=== PATIENT | male | born 1950 | race Caucasian/White ===

== ENCOUNTER 2022-11-05 12:46 | Inpatient (IN) | payer MEDICARE, OTHER, SELFPAY ==
[2022-11-05] VITALS (8 sets, daily range): BP systolic 108–123; BP diastolic 62–76; PULSE 74–91; RESP 18–20; TEMP 36.8–37.6; O2SAT 96–99; BMI 30.4
--- NOTE | ~2022-11-05 | CT_ITS ---
EXAMINATION: CT brain wo con DATE: 11/07/2022 18:04 INDICATION: Sepsis. Altered mental status. TECHNIQUE: Computed tomography (CT) of the head was performed without intravenous contrast. Sagittal and coronal reconstructions were performed. The mA was adjusted according to patient size. Iterative reconstruction technique was employed. The dose-length product was 983.67 mGy-cm. COMPARISON: None FINDINGS: Very small focus of encephalomalacia along the tip of a gyrus in the right frontal lobe consistent wi th sequela of old infarct. No acute intracranial hemorrhage, acute infarction or abnormal extra axial fluid collection. Ventricles are normal and symmetric. No mass/mass effect. The orbits, paranasal si nuses and mastoid air cells are normal. IMPRESSION: 1. 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 No acute intracranial process. Reviewed, dictated and finalized at location A.
--- NOTE | ~2022-11-05 | XR_ITS ---
XR chest port-a-cath/central 11/07/2022 15:11 Indication: Central venous catheter placement Procedure: AP portable chest Comparison: Comparison to multiple prior studies sequentially, with oldest reviewed study dated 01/04. Findings: Cardiomegaly. Mild interstitial edema. No pleural effusion or pneumothorax. No acute osseou s abnormality. Right IJ central line tip in the caudal aspect of the SVC. Impression: 1: Cardiomegaly with mild interstitial edema. Reviewed, dictated and finalized at location B. Impression: 1: Cardiomegaly with mild interstitial edema.
--- NOTE | ~2022-11-05 | XR_ITS ---
EXAMINATION: XR chest 1V portable Exam Date/Time: 11/07/2022 13:45 CDT HISTORY: HoTN Comparison: 01/06/2018. RESULT: Lines, tubes, and devices: None. Lungs and pleura: Slightly low volumes with crowding and bibasilar scar/atelectasis. Otherwise clear . Cardiomediastinal silhouette: Stable. Other: No acute osseous or upper abdominal finding. IMPRESSION: No acute cardiopulmonary process. Reviewed, dictated and finalized at location K.
--- NOTE | ~2022-11-05 | XR_ITS ---
EXAM: XR hand LT 2V DATE: 11/07/2022 13:58 HISTORY: left 2nd digit pain HOTN . COMPARISON: None available. FINDINGS/IMPRESSION: Limited evaluation of the second digit due to overlapping fingers. Vascular calc ifications. Possible soft tissue swelling of the palm. Consider nonportable dedicated [facility]. Reviewed, dictated and finalized at location K.
--- NOTE | ~2022-11-05 | CT_ITS ---
EXAMINATION: CT chest abdomen pelvis wo con DATE: 11/07/2022 18:07 INDICATION: Sepsis. Altered mental status. TECHNIQUE: Computed tomography (CT) of the chest, abdomen, and pelvis was performed without intraveno us contrast. Automated exposure control and iterative reconstruction technique were employed. The dos e-length product was 1774.82 mGy-cm. COMPARISON: None FINDINGS: CHEST CT: Small dependent layering left pleural effusion with adjacent compressive atelectasis in the dependent left lower lobe. Few small calcified pulmonary nodules in the bilateral lower lobes consistent with old granulomatous disease. No pneumonia, pulmonary edema or right-sided pleural effusion. Mild cardio megaly with extensive atherosclerotic coronary artery calcifications. There are also dense aortic terry ve calcifications which could predispose towards aortic stenosis. Ectatic ascending thoracic aorta me asuring up to 4.4 cm in maximal diameter. Small pericardial effusion. No pathologically enlarged thor acic lymphadenopathy. Right internal jugular central venous catheter with distal tip at the caudal-mo st superior vena cava. Moderate thoracic spondylosis with bridging osteophytes at multiple levels con sistent with diffuse idiopathic skeletal hyperostosis (DISH). ABDOMEN/PELVIS CT: The gallbladder is either completely decompressed or surgically absent. Splenomegaly measuring 14.6 c m in maximal length. Liver, pancreas, bilateral adrenal glands and right kidney are normal aside from scattered atherosclerotic calcifications. 2 cm left renal cyst. Laguerre catheter within the decompress ed bladder. No bowel obstruction. Normal appendix. Minimal nonspecific ascites scattered throughout t he abdomen and pelvis. No abscess or free intraperitoneal gas. There is also extensive body wall nena a. No pathologically enlarged abdominal or pelvic lymphadenopathy. Severe spondylosis at L5-S1 with m ild more cephalad lumbar spondylosis. There is heterotopic ossification at the adductor muscle origin along the right pubic body and at the anterosuperior bilateral anterior acetabular origins of the bi lateral rectus femoris tendons. IMPRESSION: 1. Small left pleural effusion with dependent compressive atelectasis in the left lower lobe. 2. Cardiomegaly and small pericardial effusion. 2. Aortic valve calcification which could predispose towards aortic stenosis with potentially seconda ry 4.4 cm ascending thoracic aortic aneurysm. 4. Nonspecific very small amount of ascites in the abdomen and pelvis and extensive body wall edema w hich along with the pericardial effusion and small left pericardial effusion could be related to anas arca. Reviewed, dictated and finalized at location A. IMPRESSION: 1. Small left pleural effusion with dependent compressive atelectasis in the le ft lower lobe. 2. Cardiomegaly and small pericardial effusion. 2. Aortic valve calcification which could predispose towards aortic stenosis wi th potentially secondary 4.4 cm ascending thoracic aortic aneurysm. 4. Nonspecific very small amount of ascites in the abdomen and pelvis and exten sive body wall edema which along with the pericardial effusion and small left p ericardial effusion could be related to anasarca.
--- NOTE | ~2022-11-05 | XR_ITS ---
EXAMINATION: XR abdomen NG/feed tube insert DATE: 11/08/2022 11:52 INDICATION: Nasogastric tube placement TECHNIQUE: A supine view of the abdomen and lower chest was obtained for evaluation of feeding tube placement. COMPARISON: CT dated 11/07/2022 FINDINGS: Nasogastric tube tip at the gastric antrum with proximal side-port in the distal body of the stomach. Small amount of gas seen in the stomach, proximal duodenum and at the hepatic flexure of the colon. No dilated loops of gas-filled bowel to suggest obstruction. Lung bases are clear. Enlarged cardiac s ilhouette. IMPRESSION: 1. Gastric tube in stomach. Could consider withdrawal by 6-[address] the distal tip in the distal gastric body. Reviewed, dictated and finalized at location A. IMPRESSION: 1. Gastric tube in stomach. Could consider withdrawal by 6-[address] the di stal tip in the distal gastric body.
--- NOTE | ~2022-11-05 | US_ITS ---
EXAMINATION: US abdomen complete DATE: 11/07/2022 16:53 INDICATION: Elevated Bilirubin; LUDIN TECHNIQUE: Multiple grayscale and Doppler ultrasound images of the abdomen were obtained. COMPARISON: None available. FINDINGS: The visualized portions of the pancreas are normal. The liver is normal with normal echogen icity and echotexture. No surface nodularity. Normal hepatopetal flow in the main portal vein. Gallbl adder not visualized, may be contracted and obscured by bowel gas. The common bile duct measures 6 mm . The visualized portions of the inferior vena cava are normal. The aorta was mostly obscured by kinsey l gas, normal caliber distal abdominal aorta. The right kidney measures 12.3 x 5.1 x 6.5 cm. The left kidney measures 12.2 x 6.0 x 6.2 cm. The kidn eys demonstrate normal parenchymal echogenicity. 2.4 cm simple left renal cyst. 3 mm inferior pole re nal stone. There is no hydronephrosis. The spleen is normal in appearance and measures 14.5 cm. The b ladder is decompressed by a Laguerre catheter, therefore not well evaluated. IMPRESSION: Gallbladder not visualized, likely due to contraction and obscuration by bowel gas. Abdominal aorta m ostly obscured by bowel gas. Left nephrolithiasis. Urinary bladder decompressed by a Laguerre catheter. Otherwise normal abdominal ultrasound findings. Reviewed, dictated and finalized at location K. IMPRESSION: Gallbladder not visualized, likely due to contraction and obscuration by bowel gas. Abdominal aorta mostly obscured by bowel gas. Left nephrolithiasis. Urinar y bladder decompressed by a Laguerre catheter. Otherwise normal abdominal ultrasou nd findings.
--- NOTE | ~2022-11-05 | XR_ITS ---
EXAM: XR ankle RT 2V DATE: 11/07/2022 13:58 HISTORY: pain with ROM . COMPARISON: None available. FINDINGS: Normal mineralization. No fracture or dislocation. No lytic or blastic lesion. Achilles an d plantar enthesopathy. Degenerative changes in the tibiotalar joint and midfoot Ossification in the Achilles tendon. No erosion or periosteal change. Extensive vascular calcification. IMPRESSION: No acute osseous finding in the right ankle. Reviewed, dictated and finalized at location K.
--- NOTE | 2022-11-05 11:50 | ADMGEN ---
This patient, Cedrick Estevez, was admitted to IMU Room 209-01. Patient/family oriented to hospital policies and general routines including ID bracelet, bed and alarms, visiting hours, pain management, procedures, bathroom and other care routines, personal items, smoking policy, room service/diet, and visiting hours. Information on how to activate the Rapid Response Team has been discussed. Patient/Family are encouraged to report perceived risks to care and to ask questions if they do not understand what they are told or what they should do.
[2022-11-05 13:31] LABS: Alanine Aminotransferase 26 U/L (6-50); Albumin Level 3.4 g/dL (3.5-5.1); Alkaline Phosphatase 84 U/L (38-126); Anion Gap 10 mmol/L (8-16); Aspartate Amino Transferase 39 U/L (17-59); Bilirubin,Total 1.2 mg/dL (0.2-1.3); Blood Urea Nitrogen 57 mg/dL (9-20); Calcium 7.8 mg/dL (8.4-10.2); Carbon Dioxide 18 mmol/L (22-30); Chloride 96 mmol/L (98-107); Creatine Kinase 268 U/L (55-170); Estimated Glomerular Filt Rate 30; Glucose 158 mg/dL (65-110); Potassium 3.9 mmol/L (3.4-5.0); Sodium 124 mmol/L (137-145)
--- NOTE | 2022-11-05 13:46 | PM.IMHP ---
H&P: HPI History of Present Illness Date/Time: 11/05/22 13:00 Chief Complaint: Elevated troponin, acute kidney injury. Narrative: This is a pleasant 72-year-old male with history of coronary artery disease, aortic stenosis, heart failure with reduced ejection fraction, chronic kidney disease, hypertension, dyslipidemia, kidney stones, gastroesophageal reflux disease, and remote history of peptic ulcer who is being directly admitted to the IMU from the emergency department at [facility] in [place] for further evaluation after he was reportedly found to have an elevated troponin and an acute kidney injury. Over the weekend he was not feeling well with nausea, vomiting, and diarrhea though those seem to have improved he remains quite weak. Yesterday he slid down the bed while trying to exit the bed and he landed on his buttocks and was unable to get up without help. Today he fell back into the wall while in the bathroom due to weakness. He presented to the emergency department at the outside facility where he was found to have a sodium of 125, BUN 63, creatinine 2.84. I was told that his baseline creatinine is somewhere around 1.60 and 1.70. High sensitivity troponin was obtained and was elevated though he has not had any episodes of chest pain. He received 2 L of normal saline and he was transferred to [facility] for further evaluation and cardiology consultation. At the time my evaluation he reports that he is feeling somewhat better. He seems to belch frequently during the interview and it is noted that he has a history of GERD and peptic ulcers. He has not really had any more GERD symptoms than usual. His stools are always dark as he is on iron. He does not think his GERD is playing a factor in his symptoms today. He does look dry on exam and he does endorse that he still been taking his furosemide. He tries to stay hydrated drinks 80 oz of water a day though he has not been able to do that the last several days. He denies chest discomfort, shortness of breath, syncope, near syncope, fever, chills, and sweats. Of note he currently has resolving shingles on the left flank. Review of Systems Review of Systems: Twelve systems were reviewed and are negative except for as per HPI. [facility] Past Medical History Medical History Coronary artery disease Dyslipidemia Gastroesophageal reflux disease Heart failure with reduced ejection fraction Echo 12/2017: Moderate global systolic dysfunction, pseudonormal diastolic dysfunction grade 2, EF estimated at 35-40% with wall motion abnormalities. Hypertension Ischemic cardiomyopathy Kidney stones Non-ST elevation myocardial infarction (NSTEMI) (12/2017) Peptic ulcer Type 2 diabetes mellitus Surgical History Surgical History History of cardiac catheterization (12/2017) High-grade stenosis mid and distal circumflex, total occlusion of OM1 branch and LAD with chronic collaterals, high-grade stenosis ostial PDA, high-grade stenosis of circumflex treated with drug-eluting stent. History of coronary artery stent placement (12/2017) Family History Family History (Updated 11/05/22 @ 14:08 by Charlotte Grove PA-C) Mother Congestive heart failure Valvular heart disease Asthma Father Valvular heart disease Congestive heart failure Sibling Hypertension Diabetes mellitus Social History Social History Social History: Surrogate medical decision maker: Jannette Estevez, spouse. Code status: Full code. Smoking status: Never smoker Alcohol intake: never Substance use: never Lack of Transportation: No Lack of Food: Never True Current Housing: I Have Housing Concerned About Future Housing: No Difficulty Paying Gas/Electric Bills: No Difficulty Paying for Meds: No Currently Unemployed: No Education: H
--- NOTE | 2022-11-05 13:50 | ECG_ITS ---
Measurements Intervals [place] Rate: 84 P: 83 NE: 234 QRS: 258 QRSD: 197 T: 67 QT: 429 QTc: 508 Interpretive Statements SINUS RHYTHM WITH FIRST DEGREE AV BLOCK VENTRICULAR PREMATURE COMPLEX RIGHT AXIS DEVIATION RIGHT BUNDLE BRANCH BLOCK INFERIOR INFARCT, AGE INDETERMINATE ANTEROLATERAL INFARCT, AGE INDETERMINATE ABNORMAL ECG NO PREVIOUS ECG AVAILABLE FOR COMPARISON Electronically Signed On 11-05-2022 14:19:36 CDT by Lambert Davila D.O.
--- NOTE | 2022-11-05 16:57 | PM.CNCAR ---
Assessment and Plan Assessment and plan (1) Heart failure with reduced ejection fraction: Code(s): I50.20 - Unspecified systolic (congestive) heart failure Status: Acute (2) Aortic stenosis: Code(s): I35.0 - Nonrheumatic aortic (valve) stenosis Status: Acute Plan This is a 72-year-old chronic coronary artery disease according to the records he is known to have occlusion of his LAD as well as the 1st OM branch of the circumflex. In 2018 he underwent PCI of his circumflex trunk with couple of drug-eluting stents after which he became unstable because of his ischemic LV dysfunction and was in cardiogenic shock requiring a balloon pump. Despite all this he has done remarkably well for the next 4-5 years. He is now developing significant aortic valve stenosis and secondary pulmonary hypertension as a result of this. The patient according to my partner and I would agree is probably getting close to requiring surgical aortic valve treatment and surgical revascularization given this above anatomy. He enters the hospital with symptoms of poor p.o. intake for at least a couple or 3 days and lower extremity weakness and falling. I do not get the sense that there is an acute cardiac problem going on here. His electrocardiogram is very abnormal but is not substantially changed in comparison to previous tracings that are in the chart and his troponin levels while elevated are flat. I would recommend continuing his medical regimen for ischemic LV dysfunction including his aspirin, Brilinta, atorvastatin, carvedilol and lisinopril. With the clinical impression that he is probably dehydrated now so I would probably hold the furosemide at least for the short term. We will follow him with you while he is in the hospital but at this point I do not believe we need to be concerned about a new coronary or valve problems. He is a high-risk candidate for bringing back to the parking lot laborer here at [place] given the complexity of his anatomy, known total occlusions and the development of cardiogenic shock after the last procedure in 2018. I would not favor bringing him to the parking lot laborer here at [place] therefore for assessment of his coronary or valvular heart disease. Miles Olivares MD [facility] History of Present Illness History of Present Illness Consult date/time: 11/05/22 16:57 Reason For Visit: LUDIN, Elevated Troponin Narrative: This is a 72-year-old man I am seeing at the request of the hospitalist because of elevated troponin levels. Patient is not known to me prior to this encounter but apparently follows with my partner, Dr. Torres. I did not see any previous records on this gentleman on the [facility] EMR. The patient states that he was transferred here earlier this morning from the emergency room at [place] where he was referred by his primary physician to be evaluated because of symptoms of generalized weakness fatigue he has been eating and drinking poorly for a couple of days at least and was very weak and unable to stand up on his legs. Because of this over the weekend he had fallen a couple of times. He is not reporting any symptoms of chest pain pressure or heaviness he does not have any orthopnea PND or accumulating edema. His laboratory evaluation here at [facility] shows evidence of chronic kidney disease which does not look substantially different from the past he has troponin levels that have been sample x2 that are in the range of 2.3 and 2.4 but flat without rise following curve. The patient's electrocardiogram is very abnormal showing sinus rhythm first-degree AV block and right bundle branch block leftward axis in previous anterior infarction. Also previous inferior infarction. Compared to old ECGs that are in our office record there is no difference. According to the patient he otherwise does not have any complaints at this time. He has a history of coronary disease dating back to December of 2017 when he presente
[2022-11-05 19:32] LABS: Creatinine Urine 199.1 mg/dL; Urea Random Urine 973 MG/DL
[2022-11-05 19:34] LABS: Sodium Urine Random < 5 meq/L
[2022-11-05] MEDS: SODIUM CHLORIDE 0.9% IV 1,000 ML 100 ML IV CONT (20:34)
[2022-11-06] VITALS (20 sets, daily range): BP systolic 89–114; BP diastolic 56–79; PULSE 80–88; RESP 18–24; TEMP 36.4–37.4; O2SAT 93–99
[2022-11-06 00:17] LABS: Anion Gap 9 mmol/L (8-16); Blood Urea Nitrogen 62 mg/dL (9-20); Calcium 7.7 mg/dL (8.4-10.2); Carbon Dioxide 22 mmol/L (22-30); Chloride 95 mmol/L (98-107); Estimated CRCL calculation 31 ml/min; Estimated Glomerular Filt Rate 30; Glucose 179 mg/dL (65-110); Potassium 3.9 mmol/L (3.4-5.0); Sodium 126 mmol/L (137-145)
[2022-11-06] MEDS: SCOPOLAMINE 1.5 MG PATCH TRANSDERM (01:07)
[2022-11-06 01:24] LABS: pH Gastric Fluid 2 (1-8)
[2022-11-06 01:25] LABS: Gastric Negative Control Negative; Gastric Positive Control Positive; Occult Blood Gastric Fluid Positive
[2022-11-06 05:03] LABS: Hematocrit 31.9 % (42.0-52.0); Immature Platelet Fraction Pct 2.4 % (0.9-11.2); Mean Corpuscular HGB Conc 34.5 g/dl (32-36); Mean Corpuscular Volume 89.9 fl (80-100); Mean Platelet Volume 9.6 fl (7.4-10.4); Platelet Count Result 62 k/mm3 (150-375); Red Blood Count 3.55 M/mm3 (4.6-6.20); Red Cell Distribution Width 13.8 % (11.5-14.5); White Blood Count 8.1 K/mm3 (4.5-10.0)
[2022-11-06 05:18] LABS: Anion Gap 11 mmol/L (8-16); Blood Urea Nitrogen 63 mg/dL (9-20); Calcium 7.7 mg/dL (8.4-10.2); Carbon Dioxide 20 mmol/L (22-30); Chloride 95 mmol/L (98-107); Estimated CRCL calculation 31 ml/min; Estimated Glomerular Filt Rate 30; Glucose 176 mg/dL (65-110); Potassium 3.8 mmol/L (3.4-5.0); Sodium 126 mmol/L (137-145)
[2022-11-06 05:36] LABS: Hemoglobin A1C 5.6 % (<5.7)
[2022-11-06] MEDS: SODIUM CHLORIDE 0.9% IV 1,000 ML 100 ML IV CONT ×2 (06:17→16:23)
[2022-11-06 07:43] LABS: Glucose Point of Care 182 mg/dl (65-105)
--- NOTE | 2022-11-06 08:00 | ECHO_ITS ---
Patient Info Name: Cedrick Estevez Age: 72 years : 1950 Gender: Male Ht: 69 in Wt: 206 lbs BSA: 2.16 m2 HR: 87 bpm BP: 114 / 62 mmHg Heart Rhythm: Sinus Rhythm Exam Date: 11/06/2022 9:39 AM Exam Location: [facility] Pul[facility] Patient Status: Outpatient Admit Date: 11/05/2022 Staff Ordering Physician: Charlotte Grove PA-C Software Integration Developer: Joaquín Will Attending Provider: Miles Leong MD Referring Physician: [place] MAYEN; Exam Type: CA echo doppler color flow Study Info Indications - Elevated trops, CAD, ICM R07.89 - Other chest pain Complete two-dimensional, color flow and Doppler transthoracic echocardiogram is performed. Summary 1. Complete two-dimensional, color flow and Doppler transthoracic echocardiogram is performed. 2. Left ventricular chamber dimension is mildly enlarged. 3. Left ventricular systolic function is severely reduced, estimated at 20-25%. 4. There is mildly increased left ventricular wall thickness. 5. Left ventricular septal wall motion is abnormal with septal motion related to bundle branch block. 6. Right ventricular systolic function is reduced. 7. There is severe aortic valve calcification. 8. There is severe aortic valve stenosis with a peak velocity of 296 cm/s, mean gradient of 21 mmHg, and aortic valve area of 0.6 cm2. 9. The mitral valve has thickened leaflets. 10. The mitral valve annulus is moderately calcified. 11. There is mild mitral valve regurgitation. 12. There is mild tricuspid valve regurgitation. 13. There is trivial pericardial effusion. Left Ventricle Left ventricular chamber dimension is mildly enlarged. Left ventricular systolic function is severely reduced, estimated at 20-25%. There is mildly increased left ventricular wall thickness. Left ventricular septal wall motion is abnormal with septal motion related to bundle branch block. Right Ventricle Right ventricular chamber dimension is normal. Right ventricular systolic function is reduced. Left Atria Left atrial chamber dimension is normal. Right Atria Right atrial chamber dimension is normal. Atrial Septum Intact interatrial septum visualized by color flow imaging. Aortic Valve The aortic valve is probable trileaflet. There is severe aortic valve stenosis with a peak velocity of 296 cm/s, mean gradient of 21 mmHg, and aortic valve area of 0.6 cm2. There is no aortic valve regurgitation. There is severe aortic valve calcification. Pulmonic Valve The pulmonic valve is not well visualized. Mitral Valve The mitral valve has thickened leaflets. There is mild mitral valve regurgitation. The mitral valve annulus is moderately calcified. Tricuspid Valve There is mild tricuspid valve regurgitation. Pericardium/Pleural There is trivial pericardial effusion. Inferior Vena Cava Dilated inferior vena cava with >50% collapse upon inspiration consistent with elevated right atrial pressure, 8 mmHg. Aorta The aortic root size at the sinus of Valsalva is normal. Left Ventricular Outflow Tract Name Value Normal LVOT 2D LVOT Diameter 2.1 cm LVOT Doppler LVOT Peak Gradient 1 mmHg LVOT Mean Gradient 0 mmHg LVOT VTI
[2022-11-06] MEDS: PANTOPRAZOLE SODIUM IV 40 MG VIAL IV PUSH ×2 (09:21→20:20)
[2022-11-06] MEDS: carvediloL 12.5 MG TABLET PO (09:22)
[2022-11-06] MEDS: FAMOTIDINE 20 MG TABLET PO (09:22)
[2022-11-06] MEDS: ATORVASTATIN 40 MG TABLET PO (09:22)
[2022-11-06] MEDS: FLUTICASONE PROPIONATE 0.05% NA SPR 16 GM BTL (*BKC) 2 SPRAY NASAL (09:23)
--- NOTE | 2022-11-06 10:35 | PM.IMPN ---
Progress Note: A&P Assessment and Plan (1) Acute on chronic renal failure: Code(s): N17.9 - Acute kidney failure, unspecified; N18.9 - Chronic kidney disease, unspecified Status: Acute Assessment and Plan: Likely due to hypovolemia from dehydration and hypoperfusion from softer blood pressures. Hold furosemide for now. Continue cautious IV fluid rehydration. (2) Hyponatremia: Code(s): E87.1 - Hypo-osmolality and hyponatremia Status: Acute Assessment and Plan: He looks dehydrated from vomiting and diarrhea the last several days. He has been taking a diuretic at home as well. Continue to monitor sodium closely. Urine sodium and urea, urine and serum osmolalities, and TSH ordered for further evaluation. (3) Viral gastroenteritis: Code(s): A08.4 - Viral intestinal infection, unspecified Status: Acute Assessment and Plan: Patient has had nausea, vomiting, and diarrhea for the last several days though they are improving. Presumably he is getting over a viral gastroenteritis. However he does exhibit frequent belching during the interview and given his history of GERD and peptic ulcers, gastritis or esophagitis is a consideration. He does not feel his symptoms are related to this, however. We discussed GI consultation but he declined that at this time. Continue famotidine for now. (4) Dehydration: Code(s): E86.0 - Dehydration Status: Acute Assessment and Plan: He looks dry on exam is being judiciously hydrated with close monitoring of volume status given his heart failure history. (5) Elevated troponin: Code(s): R77.8 - Other specified abnormalities of plasma proteins Status: Acute Assessment and Plan: Patient has not had any chest pain. Troponins have remained flat and are not likely indicative of acute coronary syndrome. Cardiology consulted for their opinion. (6) Heart failure with reduced ejection fraction: Code(s): I50.20 - Unspecified systolic (congestive) heart failure Status: Acute Assessment and Plan: Clinically compensated but we need to monitor his volume status closely while hydrating. Continue carvedilol and lisinopril. (7) Type 2 diabetes mellitus: Code(s): E11.9 - Type 2 diabetes mellitus without complications Status: Acute Assessment and Plan: Diet-controlled. Random glucose is 179. Initiate sliding scale insulin, Accu-Cheks, and hypoglycemic protocol. Check A1c. (8) Coronary artery disease: Code(s): I25.10 - Atherosclerotic heart disease of [place] coronary artery without angina pectoris Status: Acute Assessment and Plan: Troponins are elevated but have remained flat. Cardiology consulted for their opinion. (9) Hypertension: Code(s): I10 - Essential (primary) hypertension Status: Acute Assessment and Plan: Blood pressures have been at the low end of normal. Continue lisinopril and carvedilol with parameters. Hold furosemide for now. (10) Aortic stenosis: Code(s): I35.0 - Nonrheumatic aortic (valve) stenosis Status: Acute Assessment and Plan: He is being followed by Dr. Torres who thinks he is probably close requiring surgical intervention. (11) Coffee ground emesis: Code(s): K92.0 - Hematemesis Status: Acute Assessment and Plan: GI consult pending Plan DVT prophylaxis with SCDs GI prophylaxis with PPI Code status full code Subjective Date/time seen: 11/06/22 10:35 Interval history: 72 year old male with h/o PMH of CAD, 2018 PCI, AVS, pulm HTN, GERD p/w generalized weakness being treated for LUDIN + elevated troponin, cardio does not think ACS, likely needs AVR in the near future. No overnight events noted. No chest pain or shortness of breath. No nausea, vomiting or diarrhea. No fevers or chills. Review of Systems Review of Systems:
[2022-11-06 12:41] LABS: Glucose Point of Care 162 mg/dl (65-105)
--- NOTE | 2022-11-06 13:02 | PM.PNCARD ---
Progress Note: A&P Assessment and Plan (1) Heart failure with reduced ejection fraction: Code(s): I50.20 - Unspecified systolic (congestive) heart failure Status: Acute Assessment and Plan: Currently not displaying any evidence of decompensated heart failure. However, given fluid resuscitation for dehydration and preload optimization for his , be cautious to avoid iatrogenic heart failure. Lasix is currently on hold. (2) Aortic stenosis: Code(s): I35.0 - Nonrheumatic aortic (valve) stenosis Status: Acute Assessment and Plan: He has severe aortic stenosis with MARCIA <1.0cm2. Asymptomatic. Avoid hypotension. Can continue fluids at current rate for now as he was mildly hypotensive with most recent set of vitals. Want to balance optimization of preload with avoidance of iatrogenic CHF. Perhaps decrease fluids later this afternoon if BP improves. (3) Coffee ground emesis: Code(s): K92.0 - Hematemesis Status: Acute Assessment and Plan: Had coffee ground emesis last night that was guaiac positive. ASA and Brilinta are currently on hold because of this, and GI planning for EGD. He is high risk for this procedure because of his severe , LV dysfunction, and CAD. Caution should be taken to avoid any hypotension during this procedure. Decision will be made regarding resumption of ASA and Brilinta following EGD Subjective Date/time seen: 11/06/22 11:15 Cardiology follow up for , CAD Interval history: He is complaining of significant nausea today. Had N/V last evening that was guaiac positive for blood. He is denying any chest pain, shortness of breath, or palpitations. Review of Systems Constitutional: Constitutional: Reports no additional constitutional complaints Eyes: Eyes: Reports no additional eye complaints ENT: Reports system reviewed and no additional complaints, except as documented Cardiovascular: Cardiovascular: Reports as per HPI and Reports dyspnea on exertion Respiratory: Respiratory: Reports dyspnea on exertion Gastrointestinal: Gastrointestinal: Reports as per HPI and Reports nausea Musculoskeletal: Musculoskeletal: Reports as per HPI Integumentary/Breasts: Skin/Breast: Reports system reviewed and no additional complaints, except as docu Endocrine: Endocrine: Reports no additional endocrine complaints Hematologic/Lymphatic: Hematologic/Lymphatic: Reports no additional hematologic/lymphatic complaints Allergic/Immunologic: Allergic/Immunologic: Reports no additional allergic/immunologic complaints Exam Const: General: comfortable and no acute distress Other: Pleasant well-developed well-nourished white male appears to be a bit older than his stated age otherwise pleasant cooperative uncomfortable because of nausea but in no distress HENMT: Mouth: Yes moist mucous membranes Eyes: Sclera: sclerae normal Neck: Neck: supple and no JVD Resp: Effort & Inspection: normal respiratory effort Auscultation: clear to auscultation bilaterally Cardio: Rate: regular rate Rhythm: regular rhythm Other: Patient has a grade 2/6 high-pitched crescendo decrescendo murmur audible at the base radiates to the carotids no diastolic murmur GI: Auscultation: normal bowel sounds Skin: General skin exam: normal color Neuro: Other: Alert and oriented x3 Extrem: Other: No significant edema distal pulses are difficult to feel below the femoral triangle Objective Data Vital Signs Vital Signs: Vital Signs - 24 hr 11/05/22 16:00 11/05/22 16:00 11/05/22 16:00 Temperature 37.6 C H Pulse Rate 86 85 Respiratory Rate 18 Blood Pressure 122/76 Pulse Oximetry 97 Oxygen Delivery Room Air 11/05/22 18:00 11/05/22 20:00 11/05/22 22:26 Temperature 36.8 C 37.2 C Pulse Rate 89 88 74 Respiratory Rate 20 20 Blood Pressure 108/62 123/70 Pulse Oximetry 99 99 Oxygen Delivery 11/05/22 20:00 11/06/22 00:00
--- NOTE | 2022-11-06 13:22 | WPDGICN ---
Assessment and Plan Assessment and plan (1) Coffee ground emesis: Code(s): K92.0 - Hematemesis Status: Acute Assessment and Plan: Patient with coffee-ground emesis noted in [place]. Patient does have mild anemia. Likely related to stress gastritis in his current significant congestive heart failure and heart disease. Presently would advise treating conservatively with PPI acid suppression. An EGD can be performed when he is felt to be clinically stable. I would defer it today because of his soft blood pressure. Continue to monitor hemoglobin watch for any signs of decline. (2) Acute on chronic renal failure: Code(s): N17.9 - Acute kidney failure, unspecified; N18.9 - Chronic kidney disease, unspecified Status: Acute Assessment and Plan: Patient with chronic renal insufficiency. Now with elevated BUN potentially because of bleeding but likely with related to volume status associated with congestive heart failure. (3) Coronary artery disease: Code(s): I25.10 - Atherosclerotic heart disease of [place] coronary artery without angina pectoris Status: Acute (4) Heart failure with reduced ejection fraction: Code(s): I50.20 - Unspecified systolic (congestive) heart failure Status: Acute Assessment and Plan: Patient admitted with congestive heart failure. Currently being monitored and treated by Cardiology Service. (5) Aortic stenosis: Code(s): I35.0 - Nonrheumatic aortic (valve) stenosis Status: Acute Assessment and Plan: Patient with underlying valvular heart disease. Continue monitoring treatment by heart service advised. GI Consult Note Consult date/time: 11/06/22 13:22 Reason for consult: Coffee-ground emesis HPI: Cedrick Estevez is a 72 year old male admitted to [facility] directly from [facility] in [place]. Patient apparently presented to the emergency room in [place] with coffee-ground emesis. Patient has a history of chronic kidney disease. Was noted to have some azotemia. Troponin level was checked because of a history of heart disease found to be elevated and patient transferred to [facility]. Patient has been maintained on bright lent of because of aortic stenosis. He is known to have congestive heart failure that was the impression upon admission to [facility]. gastric contents were found to be positive for gastric blood. Occult blood. Today on examining the patient he is somewhat somnolent to level of arousal varies. he is felt to be somewhat hypotensive at present. Family reports dark stools attributed to iron replacement. Review of Systems Review of Systems: Review of systems noncontributory. [facility] Past Medical History Medical History (Updated 11/06/22 @ 13:25 by Nelson Royal MD) Coronary artery disease Dyslipidemia Gastroesophageal reflux disease Heart failure with reduced ejection fraction Echo 12/2017: Moderate global systolic dysfunction, pseudonormal diastolic dysfunction grade 2, EF estimated at 35-40% with wall motion abnormalities. Hypertension Ischemic cardiomyopathy Kidney stones Non-ST elevation myocardial infarction (NSTEMI) (12/2017) Peptic ulcer Type 2 diabetes mellitus Surgical History Surgical History (Updated 11/05/22 @ 13:53 by Charlotte Grove PA-C) History of cardiac catheterization (12/2017) High-grade stenosis mid and distal circumflex, total occlusion of OM1 branch and LAD with chronic collaterals, high-grade stenosis ostial PDA, high-grade stenosis of circumflex treated with drug-eluting stent. History of coronary artery stent placement (12/2017) Family History Family History (Updated 11/05/22 @ 14:08 by Charlotte Grove PA-C) Mother Congestive heart failure Valvular heart disease Asthma Father Valvular heart disease Congestive heart failure Sibling Hypertension Diabetes mellitus Social History Social Hi
[2022-11-06 15:18] LABS: IFOB Positive Control Positive; Immunochemical Fecal Occult Bl Positive (N)
[2022-11-06 16:26] LABS: Glucose Point of Care 156 mg/dl (65-105)
[2022-11-06 19:43] LABS: Glucose Point of Care 145 mg/dl (65-105)
[2022-11-07] VITALS (69 sets, daily range): BP systolic 69–112; BP diastolic 36–65; PULSE 82–100; RESP 18–31; TEMP 36.1–39.6; O2SAT 67–99
[2022-11-07] MEDS: SODIUM CHLORIDE 0.9% IV 1,000 ML 100 ML IV CONT ×2 (02:45→10:11)
[2022-11-07 05:16] LABS: Basophils Percent Auto 0.2 % (0.2-1.2); Hematocrit 30.3 % (42.0-52.0); Hemoglobin 10.4 g/dL (14.0-18.0); Immature Granulocyte Absolute 0.23 K/mm3 (0.00-0.031); Immature Granulocyte Percent A 2.5 % (0-0.5); Immature Platelet Fraction Pct 3.6 % (0.9-11.2); Lymphocytes Absolute Auto 0.11 K/mm3 (0.9-3.2); Lymphocytes Percent Auto 1.2 % (18.3-44.2); Mean Corpuscular HGB Conc 34.3 g/dl (32-36); Mean Corpuscular Hemoglobin 30.7 pg (26-34); Mean Corpuscular Volume 89.4 fl (80-100); Mean Platelet Volume 9.9 fl (7.4-10.4); Monocytes Absolute Auto 0.6 K/mm3 (0.1-0.6); Monocytes Percent Auto 6.6 % (2.6-8.5); Neutrophils Absolute Auto 8.2 K/mm3 (1.3-6.7); Neutrophils Percent Auto 89.5 % (45.5-73.1); Platelet Count Result 59 k/mm3 (150-375); Red Blood Count 3.39 M/mm3 (4.6-6.20); Red Cell Distribution Width 13.9 % (11.5-14.5); White Blood Count 9.2 K/mm3 (4.5-10.0)
[2022-11-07 05:34] LABS: Alanine Aminotransferase 56 U/L (6-50); Albumin Level 2.9 g/dL (3.5-5.1); Alkaline Phosphatase 79 U/L (38-126); Anion Gap 10 mmol/L (8-16); Aspartate Amino Transferase 88 U/L (17-59); Bilirubin,Total 1.5 mg/dL (0.2-1.3); Blood Urea Nitrogen 80 mg/dL (9-20); Calcium 7.6 mg/dL (8.4-10.2); Carbon Dioxide 20 mmol/L (22-30); Chloride 98 mmol/L (98-107); Estimated CRCL calculation 25 ml/min; Estimated Glomerular Filt Rate 22; Glucose 120 mg/dL (65-110); Potassium 3.7 mmol/L (3.4-5.0); Sodium 128 mmol/L (137-145)
[2022-11-07 05:40] LABS: Platelet Estimate Decreased (Adequate)
[2022-11-07 05:42] LABS: Acanthocytes 1+ (NORMAL); Anisocytosis 2+ (NORMAL); Burr Cells 3+ (NORMAL); Crenated RBC 3+ (NORMAL); Poikilocytosis 3+ (NORMAL)
[2022-11-07 05:43] LABS: Schistocytes Rare (NORMAL)
[2022-11-07 07:44] LABS: Glucose Point of Care 132 mg/dl (65-105)
--- NOTE | 2022-11-07 07:44 | WPDGIPROGNO ---
Progress Note: A&P Assessment and Plan (1) Coffee ground emesis: Code(s): K92.0 - Hematemesis Status: Acute Assessment and Plan: Patient reported to have coffee-ground emesis at [facility] prior to being transferred. No additional emesis. Hemoglobin 10.4 this morning is relatively stable. Given his significant congestive heart failure I will defer EGD. Plan to treat empirically for possible stress gastritis and or ulcerations. Defer invasive testing because of his rather significant heart failure at present. If patient remains anticoagulated continue to monitor hemoglobin closely given his occult blood in stool and recent coffee-ground emesis will maintain patient on pantoprazole for now. (2) Acute on chronic renal failure: Code(s): N17.9 - Acute kidney failure, unspecified; N18.9 - Chronic kidney disease, unspecified Status: Acute (3) Elevated troponin: Code(s): R77.8 - Other specified abnormalities of plasma proteins Status: Acute (4) Aortic stenosis: Code(s): I35.0 - Nonrheumatic aortic (valve) stenosis Status: Acute (5) Heart failure with reduced ejection fraction: Code(s): I50.20 - Unspecified systolic (congestive) heart failure Status: Acute Subjective Date/time seen: 11/07/22 07:44 Interval history: Patient alert this morning. Appears oriented. He remains very weak. Somewhat short of breath. No additional coffee-ground emesis reported. Hemoglobin has remained essentially stable. Only a slight decline noted. Dark stools noted these were Hemoccult positive. Patient has been on iron as well. Review of Systems Review of Systems: Review of systems noncontributory. Exam Narrative: On physical exam patient is alert but lethargic. HEENT exam reveals no icterus. Lungs reveal rhonchi bilaterally. Heart with the systolic murmur. Abdomen bowel sounds present soft nontender. Objective Data Vital Signs Vital Signs: Vital Signs - 24 hr 11/06/22 07:58 11/06/22 09:22 11/06/22 08:00 Temperature 99.3 F Pulse Rate 85 86 85 Respiratory Rate 22 H Blood Pressure 101/57 L Pulse Oximetry 99 Oxygen Delivery 11/06/22 10:00 11/06/22 12:00 11/06/22 14:35 Temperature 98.2 F Pulse Rate 84 84 85 Respiratory Rate 18 Blood Pressure 91/59 L Pulse Oximetry 98 Oxygen Delivery 11/06/22 14:45 11/06/22 12:30 11/06/22 14:40 Temperature Pulse Rate 88 88 Respiratory Rate Blood Pressure 92/58 L 90/60 L Pulse Oximetry 98 Oxygen Delivery 11/06/22 16:00 11/06/22 16:00 11/06/22 18:00 Temperature 98.8 F Pulse Rate 83 83 83 Respiratory Rate 18 Blood Pressure 89/61 L Pulse Oximetry 93 Oxygen Delivery 11/06/22 17:00 11/06/22 18:00 11/06/22 19:45 Temperature 97.6 F Pulse Rate 85 81 84 Respiratory Rate 20 20 20 Blood Pressure 96/60 L 94/60 L 96/56 L Pulse Oximetry 98 98 99 Oxygen Delivery 11/06/22 20:00 11/06/22 20:00 11/06/22 22:00 Temperature Pulse Rate 83 83 Respiratory Rate Blood Pressure Pulse Oximetry 98 Oxygen Delivery Room Air 11/06/22 22:55 11/07/22 00:00 11/07/22 00:00 Temperature 98.5 F Pulse Rate 80 82 Respiratory Rate 22 H Blood Pressure 94/79 L Pulse Oximetry 98 99 Oxygen Delivery Room Air 11/07/22 02:00 11/07/22 03:56 11/07/22 04:00 Temperature 97 F L Pulse Rate 83 85 Respiratory Rate 20 Blood Pressure 97/63 L Pulse Oximetry 98 Oxygen Delivery Room Air 11/07/22 04:00 11/07/22 06:00 Temperature Pulse Rate 85 88 Respiratory Rate Blood Pressure Pulse Oximetry Oxygen Delivery Intake/Output Intake/Output: Intake & Output 11/04/22 11/05/22 11/06/22 11/07/22 23:59 23:59 23:59 23:59 Intake Total 50 2640 1000 Output Total 450 300 Balance 50 2190 700 Meds/Results Medications: Active Medications Generic Name Dose Route Start Last Admin Trade Name Freq
[2022-11-07] MEDS: PANTOPRAZOLE SODIUM IV 40 MG VIAL IV PUSH ×2 (10:03→21:43)
[2022-11-07] MEDS: FLUTICASONE PROPIONATE 0.05% NA SPR 16 GM BTL (*BKC) 2 SPRAY NASAL (10:04)
[2022-11-07] MEDS: FAMOTIDINE 20 MG TABLET PO (10:07)
[2022-11-07 12:41] LABS: Glucose Point of Care 118 mg/dl (65-105)
--- NOTE | 2022-11-07 13:19 | PM.IMPN ---
Progress Note: A&P Assessment and Plan (1) Hypotension: Code(s): I95.9 - Hypotension, unspecified Status: Acute Assessment and Plan: Patient hypotensive today. Consider cardiogenic with his EF of 20-25% and severe aortic stenosis with valve area of 0.6 cm2. Consider sepsis but felt less likely. Patient's white count is normal. His stools are guaiac positive. Hemoglobin is stable but will repeat to ensure continued stability. Thrombocytopenia noted which could be related to sepsis possibly. Will check blood cultures. Repeat chest x-ray. Check UA. Will start antibiotics. Cardiology has been consulted and will inform them of the patient's condition. He may need vasopressor support. Will discussed with opening machine cleaner. Clarify code status with family. (2) Coffee ground emesis: Code(s): K92.0 - Hematemesis Status: Acute Assessment and Plan: Patient noted to have coffee-ground emesis. Stools guaiac positive. GI is on consult but given the patient's current condition, endoscopy is on hold. Continue Protonix IV. (3) Altered mental status: Code(s): R41.82 - Altered mental status, unspecified Status: Acute Assessment and Plan: Patient more awake but still confused. This is not his normal baseline. He does have focal neurologic changes. Would like to check CT of the brain if able. Will consider also sepsis causing altered mental status. Consider also poor cerebral perfusion from hypotension from cardiac etiology. Treatment as above. (4) Heart failure with reduced ejection fraction: Code(s): I50.20 - Unspecified systolic (congestive) heart failure Status: Acute Assessment and Plan: Patient appears to be euvolemic. Urine sodium is less than 5 but this could be related to the severe aortic stenosis and poor renal perfusion. Liver enzymes are elevated which could be related hepatic congestion from acute heart failure. (5) Acute on chronic renal failure: Code(s): N17.9 - Acute kidney failure, unspecified; N18.9 - Chronic kidney disease, unspecified Status: Acute Assessment and Plan: Patient was on Lasix on admission. Acute kidney injury could be related to dehydration but also suspect hypoperfusion from the severe aortic stenosis and poor EF. By report, baseline creatinine is 1.6-1.7. Creatinine elevated here at 2.2 and has climbed to 2.8 today. Repeat levels later today. Continue IV fluids. Improve blood pressure to ensure good renal perfusion. (6) Hyponatremia: Code(s): E87.1 - Hypo-osmolality and hyponatremia Status: Acute Assessment and Plan: He looks dehydrated from vomiting and diarrhea the last several days. He has been taking a diuretic at home as well. Urine sodium <5. Urine urea 973. TSH normal. Sodium better with the IV fluids. Continue to monitor sodium closely. (7) Viral gastroenteritis: Code(s): A08.4 - Viral intestinal infection, unspecified Status: Acute Assessment and Plan: Patient has had nausea, vomiting, and diarrhea for the last several days though they are improving. Presumably he is getting over a viral gastroenteritis. GI following. Continue Protonix. (8) Elevated troponin: Code(s): R77.8 - Other specified abnormalities of plasma proteins Status: Acute Assessment and Plan: Patient has not had any chest pain. Troponins peaked at 2.4 and are trending down. EKG showing right bundle branch block, right axis deviation, age-indeterminate inferior and anterior lateral infarct. Echocardiogram shows EF of 20-25% with septal wall motion abnormalities consistent a bundle branch block. He also has severe aortic stenosis as mentioned above. ASA on hold due to becky GI bleed. (9) Type 2 diabetes mellitus: Code(s): E11.9 - Type 2 diabetes mellitus without complications Status: Acute Assessment and Plan: A1c 5.6. Diet-controlled. C
--- NOTE | 2022-11-07 14:12 | PM.PNCARD ---
Progress Note: A&P Assessment and Plan (1) Heart failure with reduced ejection fraction: Code(s): I50.20 - Unspecified systolic (congestive) heart failure Status: Acute Assessment and Plan: Very cautious with fluid balance. Continue IV fluid support for now. Patient has worsening LV systolic function severe depression EF 20 25%. Patient will required pressor support given severe hypotension refractory to fluids. Patient is critically ill with poor prognosis. He is not a candidate for aortic valve replacement at this time and this is not an option at this institution. Patient would be best served transfer to higher level of care to outside hospital, however, he is not hemodynamically stable enough for transfer at this time. Discussed the limitations and risk in association with his conditions. Patient's and son verbalized understanding. All questions answered to their satisfaction. Spent 45 minutes with the patient at bedside including discussion with family, examination, discussions with colleagues, chart review, medical decision-making, and documentation. (2) Aortic stenosis: Code(s): I35.0 - Nonrheumatic aortic (valve) stenosis Status: Acute Assessment and Plan: He has severe aortic stenosis with MARCIA <1.0cm2. Asymptomatic. Avoid hypotension. Can continue fluids at current rate for now as he was mildly hypotensive with most recent set of vitals. Want to balance optimization of preload with avoidance of iatrogenic CHF. Perhaps decrease fluids later this afternoon if BP improves. (3) Hypotension: Qualifiers: Hypotension type: other hypotension type Qualified Code(s): I95.89 - Other hypotension Code(s): I95.9 - Hypotension, unspecified Status: Acute Assessment and Plan: Patient appears to be in clinical shock likely mixed picture cardiogenic possibly septic as well. Although no fever or leukocytosis patient has severe thrombocytopenia. He is not a candidate for antiplatelet or anticoagulant therapy particularly given positive guaiac stool consider GI bleed with slight decline in H&H. (4) Elevated troponin: Code(s): R77.8 - Other specified abnormalities of plasma proteins Status: Acute Assessment and Plan: Likely multifactorial due to hypotension, acute kidney failure, severe LV dysfunction in setting of severe aortic stenosis with myocardial ischemia secondary to demand mismatch as opposed to acute plaque rupture and or acute primary infarction. Repeat troponin. Limited options. Discussed with family at great length he is not a candidate for invasive angiography even if warranted given severe thrombocytopenia, worsening acute renal failure, altered mental status, critical illness with shocking concern for sepsis. (5) Acute on chronic renal failure: Code(s): N17.9 - Acute kidney failure, unspecified; N18.9 - Chronic kidney disease, unspecified Status: Acute Assessment and Plan: Worsening despite IV fluids. Multifactorial concern for underlying infection, hypovolemia and hypoperfusion due to poor cardiac output complicated by severe aortic stenosis. (6) Altered mental status: Code(s): R41.82 - Altered mental status, unspecified Status: Acute Assessment and Plan: As above, secondary to hypoperfusion, it infectious workup pending. (7) Coronary artery disease: Code(s): I25.10 - Atherosclerotic heart disease of [place] coronary artery without angina pectoris Status: Acute Assessment and Plan: No anginal symptoms. Elevated troponin. Repeat troponin. Continue supportive care although he is not a candidate for antiplatelet therapy or anticoagulation as above. (8) Coffee ground emesis: Code(s): K92.0 - Hematemesis Status: Acute Assessment and Plan: Had coffee ground emesis last night that was guaiac positive. ASA and Brilinta are currently on hold because of this, and Jose Antonio
[2022-11-07] MEDS: SODIUM CHLORIDE 0.9% IV 1,000 ML 999 ML IV CONT (14:19)
--- NOTE | 2022-11-07 14:21 | WPDCNINT ---
Assessment and Plan Assessment and plan (1) Hypotension: Code(s): I95.9 - Hypotension, unspecified Status: Acute Assessment and Plan: Patient has been hypotensive which is likely multifactorial secondary to poor cardiac output from severe aortic stenosis and congestive heart failure with reduced ejection fraction, hypovolemia and possible sepsis Check procalcitonin UA micro blood cultures. Check lactic acid level Chest x-ray was clear Empiric vancomycin and meropenem has been ordered by internal medicine physician CT chest abdomen pelvis IV fluid bolus followed by vasopressors. Patient will need central venous catheter for vasopressors IV albumin (2) Altered mental status: Code(s): R41.82 - Altered mental status, unspecified Status: Acute Assessment and Plan: Patient encephalopathic which is likely multifactorial secondary to hypertension, uremia He is alert awake but not oriented He follows commands but is generalized weak Ammonia level is ordered TSH is normal Check ABG Head CT when stable (3) Coffee ground emesis: Code(s): K92.0 - Hematemesis Status: Acute Assessment and Plan: Hemoglobin has been stable over last 2 days. No obvious active GI bleed Patient is on Protonix IV q.12 hours GI is following Monitor hemoglobin (4) Acute on chronic renal failure: Code(s): N17.9 - Acute kidney failure, unspecified; N18.9 - Chronic kidney disease, unspecified Status: Acute Assessment and Plan: Check CK level and urine electrolytes check renal ultrasound Likely prerenal which may have progressed to ATN by now IV fluid bolus followed by vasopressors to maintain mean arterial pressure Monitor urine output electrolytes and creatinine (5) Aortic stenosis: Code(s): I35.0 - Nonrheumatic aortic (valve) stenosis Status: Acute Assessment and Plan: Severe known aortic stenosis Will likely need TAVR eventually (6) Coronary artery disease: Code(s): I25.10 - Atherosclerotic heart disease of [place] coronary artery without angina pectoris Status: Acute Assessment and Plan: Antiplatelet therapy is on hold due to GI bleed Beta-shakir and lisinopril hold due to shock Cardiology following (7) Type 2 diabetes mellitus: Code(s): E11.9 - Type 2 diabetes mellitus without complications Status: Acute Assessment and Plan: Sliding scale insulin (8) Heart failure with reduced ejection fraction: Code(s): I50.20 - Unspecified systolic (congestive) heart failure Status: Acute Assessment and Plan: Patient has history of congestive heart failure but at this time he does not have any pedal edema or pulmonary edema on the chest x-ray Due to shock I will give additional fluid bolus ECHO 11/06/22 Summary ? 1. Complete two-dimensional, color flow and Doppler transthoracic echocardiogram is performed. ? 2. Left ventricular chamber dimension is mildly enlarged. ? 3. Left ventricular systolic function is severely reduced, estimated at 20-25%. ? 4. There is mildly increased left ventricular wall thickness. ? 5. Left ventricular septal wall motion is abnormal with septal motion related to bundle branch block. ? 6. Right ventricular systolic function is reduced. ? 7. There is severe aortic valve calcification. ? 8. There is severe aortic valve stenosis with a peak velocity of 296 cm/s, mean gradient of 21 mmHg, and aortic valve area of 0.6 cm2. ? 9. The mitral valve has thickened leaflets. ? 10. The mitral valve annulus is moderately calcified. ? 11. There is mild mitral valve regurgitation. ? 12. There is mild tricuspid valve regurgitation. ? 13. There is trivial pericardial effusion. (9) Elevated liver enzymes: Code(s): R74.8 - Abnormal levels of other serum enzymes Status: Acute Assessment and Plan: Patient has elevated AST ALT and bilirubin Check right upper quadrant ultrasound Hold statin (10) S
[2022-11-07 14:37] LABS: Alveolar/Arterial O2 Gradient 48.3 mmHg; Base Excess ABG -7.5 mEq/l (+/-2.0); Fractional Inspired Oxygen 21 %; HCO3 ABG 14.5 mEq/l (22.0-26.0); Oxygen Content ABG 14.5 %vol (16.0-22.0); Oxygen Saturation ABG 96.3 % (95.0-100.0); Oxyhemoglobin 94.1 % THb (90.0-100.0); PO2 ABG 76.4 mmHg (80.0-100.0); PO2 FiO2 Ratio Arterial Blood 3.64 %; Total Hemoglobin 10.9 g/dL (12.0-18.0)
[2022-11-07 14:39] LABS: Device ROOM AIR; Modified Allen's Test Pass; PCO2 ABG 20.9 mmHg (35.0-45.0); Site Drawn LEFT RADIAL
--- NOTE | 2022-11-07 15:01 | PC.NURSE ---
Addendum entered by Ngozi Mayers RN 11/07/22 19:19: report given to yadira CADENA Original Note: 1315- Dr. Hilliard in room to assess pt - spoke with family-pt transferred to ICU @ 1400
--- NOTE | 2022-11-07 15:12 | WPDPROCEDUR ---
Procedures Central Line Placement Right IJ: Central Line Date: 11/07/22 Central Line Time: 14:45 Discussed w/ the patient/family/POA,the placement of a central venous catheter, including its clinical necessity/indication & associated potential risks, benifits and alternatives.: Yes The patient/family/POA understand(s) and acknowledge(s) the need to proceed with central venous catheter insertion as an important element of the patient's clinical management.: Yes Consent: I have discussed with the patient's , the non-emergent placement of a central venous catheter, including its clinical necessity/indication and associated potential risks and complications. The patient and/or surrogate understand(s) and acknowledge(s) the need to proceed with central venous catheter insertion as an important element of the patient's clinical management. Time Out Performed: Yes Patient Position: supine Patient placed on monitor/pulse ox: Yes Provider Prep: mask, sterile gown, sterile gloves, Max. sterile barrier precautions and hand hygiene with conventional soap/water or alcohol based hand rub Central line prep: Povidone-Iodine 1% Local anesthesia used: lidocaine 1% Amount of anesthesia used (ml): 5 Sterile US Technique with sterile gel/sterile probe covers: Yes Central line lumen inserted: triple Length (cm): 16 Depth of Insertion (cm): 16 Post Procedure: sutured in place, good blood return, all ports aspirated, flushed, capped, transparent dressing and aseptic technique maintained throughout procedure Post procedure x-ray: tip of catheter in good position Patient tolerated procedure: well Complications: none
[2022-11-07] MEDS: VANCOMYCIN 1,250 MG/NS 250 ML 1,250 MG/250 ML BAG 166.67 MG IVPB (15:26)
[2022-11-07] MEDS: SODIUM BICARBONATE 8.4% 50 MEQ/50 ML SYRINGE 100 MEQ IV PUSH (15:26)
--- NOTE | 2022-11-07 15:28 | P.CONNP_ITS ---
Assessment and Plan Assessment and plan (1) LUDIN (acute kidney injury): Code(s): N17.9 - Acute kidney failure, unspecified Status: Acute Assessment and Plan: * presumably due to hypotension/hemodynamic instability coupled with depressed EF and renal hypoperfusion * suspect may hae progressed to ATN * follow-up on urine studies, CPK, and renal ultrasound * continues attempts to optimize hemodynamics * remains at high risk for ENERGY TRADING ANALYST/dialysis although given his hemodynamic instability and pressor requirements, may need CRRT * follow repeat labs and UOP (2) Stage 3b chronic kidney disease: Code(s): N18.32 - Chronic kidney disease, stage 3b Status: Chronic Assessment and Plan: * baseline creatinine ~ 1.6 - 1.7mg/dl by report * porbably secondary to HTN, DM, vascular disease, and kidney stones * follows with Dr. Neymar Neville for CKD management (3) Hypotension: Code(s): I95.9 - Hypotension, unspecified Status: Acute Assessment and Plan: * multifactorial: * poor cardiac output/EF * severe aortic stenosis * CHF * early sepsis (?) * follow-up on culture data * empiric antibiotics * s/p IVF resuscitation * continue vasopressor support (4) Altered mental status: Code(s): R41.82 - Altered mental status, unspecified Status: Acute Assessment and Plan: * presumably due to hypotension and possibly renal failure * follow mentation with supportive therapy * if worsens, may need intubation * follow ABG * brain imaging when able (5) Coffee ground emesis: Code(s): K92.0 - Hematemesis Status: Acute Assessment and Plan: * GI already following * monitor trend of H/H * on IV PPI (6) Heart failure with reduced ejection fraction: Code(s): I50.20 - Unspecified systolic (congestive) heart failure Status: Acute Assessment and Plan: * as noted by recent Echo * complicated by aortic stenosis * Cardiology following (7) Elevated liver enzymes: Code(s): R74.8 - Abnormal levels of other serum enzymes Status: Acute Assessment and Plan: * elevated AST, ALT, and bilirubin * possibly related to hypotension +/- shock liver * right upper quadrant ultrasound ordered * follow trend of LFTs (8) Type 2 diabetes mellitus: Code(s): E11.9 - Type 2 diabetes mellitus without complications Status: Acute Assessment and Plan: * follow accuchecks * glycemic control per hospitalists/snuff container inspector Long extensive discussion (greater than 25 min) with patient's at bedside with regard to his ongoing renal dysfunction/renal failure on top of his baseline chronic kidney disease and my concerns that he may require renal replacement therapy/dialysis if he runs into ongoing issues with fluid overload, critical electrolyte abnormalities, metabolic acidosis, or uremia. She appeared to voice understanding. I will continue to follow the patient with you while he remains hospitalized and make further recommendations during his hospital course. Thank you for allowing me to participate in the care of this patient. History of Present Illness Reason for Consult Consult date: 11/07/22 Reason for consult: acute renal failure (on chronic kidney disease) Chief Complaint Chief complaint: LUDIN, Elevated Troponin History of Present Illness Narrative: Most of the information I obtained is review of the electronic medical record as well as discussion with the physician / nurses involved in the pa
--- NOTE | 2022-11-07 15:28 | PM.CNNEP ---
Assessment and Plan Assessment and plan (1) LUDIN (acute kidney injury): Code(s): N17.9 - Acute kidney failure, unspecified Status: Acute Assessment and Plan: presumably due to hypotension/hemodynamic instability coupled with depressed EF and renal hypoperfusion suspect may hae progressed to ATN follow-up on urine studies, CPK, and renal ultrasound continues attempts to optimize hemodynamics remains at high risk for PYROMETER MECHANIC/dialysis although given his hemodynamic instability and pressor requirements, may need CRRT follow repeat labs and UOP (2) Stage 3b chronic kidney disease: Code(s): N18.32 - Chronic kidney disease, stage 3b Status: Chronic Assessment and Plan: baseline creatinine ~ 1.6 - 1.7mg/dl by report porbably secondary to HTN, DM, vascular disease, and kidney stones follows with Dr. Neymar Neville for CKD management (3) Hypotension: Code(s): I95.9 - Hypotension, unspecified Status: Acute Assessment and Plan: multifactorial: poor cardiac output/EF severe aortic stenosis CHF early sepsis (?) follow-up on culture data empiric antibiotics s/p IVF resuscitation continue vasopressor support (4) Altered mental status: Code(s): R41.82 - Altered mental status, unspecified Status: Acute Assessment and Plan: presumably due to hypotension and possibly renal failure follow mentation with supportive therapy if worsens, may need intubation follow ABG brain imaging when able (5) Coffee ground emesis: Code(s): K92.0 - Hematemesis Status: Acute Assessment and Plan: GI already following monitor trend of H/H on IV PPI (6) Heart failure with reduced ejection fraction: Code(s): I50.20 - Unspecified systolic (congestive) heart failure Status: Acute Assessment and Plan: as noted by recent Echo complicated by aortic stenosis Cardiology following (7) Elevated liver enzymes: Code(s): R74.8 - Abnormal levels of other serum enzymes Status: Acute Assessment and Plan: elevated AST, ALT, and bilirubin possibly related to hypotension +/- shock liver right upper quadrant ultrasound ordered follow trend of LFTs (8) Type 2 diabetes mellitus: Code(s): E11.9 - Type 2 diabetes mellitus without complications Status: Acute Assessment and Plan: follow accuchecks glycemic control per hospitalists/paper machine tender Long extensive discussion (greater than 25 min) with patient's at bedside with regard to his ongoing renal dysfunction/renal failure on top of his baseline chronic kidney disease and my concerns that he may require renal replacement therapy/dialysis if he runs into ongoing issues with fluid overload, critical electrolyte abnormalities, metabolic acidosis, or uremia. She appeared to voice understanding. I will continue to follow the patient with you while he remains hospitalized and make further recommendations during his hospital course. Thank you for allowing me to participate in the care of this patient. History of Present Illness Reason for Consult Consult date: 11/07/22 Reason for consult: acute renal failure (on chronic kidney disease) Chief Complaint Chief complaint: LUDIN, Elevated Troponin History of Present Illness Narrative: Most of the information I obtained is review of the electronic medical record as well as discussion with the physician / nurses involved in the patient's care as well as the who was at bedside at the time my evaluation S the patient is unable to provide any history due to his altered mentation. The patient is a 72-year-old male with a past medical history as outlined below who was transferred from [facility] in [place] to [facility] for further evaluation of acute kidney injury on top of his baseline kidney disease as well as generalized weakness. On his presentations to
[2022-11-07 15:34] LABS: Hematocrit 27.9 % (42.0-52.0); Hemoglobin 9.5 g/dL (14.0-18.0)
[2022-11-07 15:46] LABS: Add Urine Microscopic? YES; Appearance Urine Cloudy (Clear); Bacteria Urine Rare /hpf; Bilirubin Urine Negative (Negative); Blood Urine 2+ (Negative); Color Urine Dark Yellow (Yellow); Glucose Urine UA Negative (Negative); Hyaline Casts Urine Present /lpf; Ketones Urine Negative (Negative); Leukocyte Esterase Ur Trace LEU/UL (Negative); Nitrate Urine Negative (Negative); Protein Urine 1+ mg/dL (Negative); Specific Grav Ur 1.017 (1.001-1.035); Squamous Epithelial Cell Urine Occasional /hpf (Few)
[2022-11-07 15:49] LABS: Creatine Kinase 914 U/L (55-170); Lactic Acid Reflex 2.7 mmol/L (0.7-2.0)
--- NOTE | 2022-11-07 15:57 | PCCCNOTE ---
On 11/07/22, the student, [Sushila Collins ], provided care and completed [facility] documentation on this patient. I have reviewed the student's documentation and agree with the findings.
[2022-11-07 16:01] LABS: Alanine Aminotransferase 84 U/L (6-50); Albumin Level 2.7 g/dL (3.5-5.1); Alkaline Phosphatase 85 U/L (38-126); Anion Gap 11 mmol/L (8-16); Aspartate Amino Transferase 170 U/L (17-59); Bilirubin,Total 1.7 mg/dL (0.2-1.3); Blood Urea Nitrogen 88 mg/dL (9-20); Calcium 7.3 mg/dL (8.4-10.2); Carbon Dioxide 17 mmol/L (22-30); Chloride 100 mmol/L (98-107); Estimated CRCL calculation 20 ml/min; Estimated Glomerular Filt Rate 17; Glucose 118 mg/dL (65-110); Potassium 4.1 mmol/L (3.4-5.0); Sodium 128 mmol/L (137-145)
[2022-11-07 16:05] LABS: Ammonia < 9 umol/L (9-30)
[2022-11-07] MEDS: SODIUM BICARBONATE 8.4% 150 MEQ in WATER, STERILE FOR INJECTION 950 ML 75 MEQ IV CONT (16:05)
[2022-11-07] MEDS: NOREPINEPHRINE 8 MG/D5W 250 ML 8 MG/250 ML BAG 9.38 MG IV CONT (16:06)
[2022-11-07 16:08] LABS: CRP 24.3 mg/dL (<1.0)
[2022-11-07] MEDS: VANCOMYCIN 1,000 MG/NS 250 ML 1,000 MG/250 ML BAG 250 MG IVPB (16:45)
[2022-11-07 16:57] LABS: Folic Acid 10.5 ng/mL (2.76->20)
[2022-11-07] MEDS: ALBUMIN HUMAN 25% 25 GM/100 ML 100 ML IVPB (17:05)
[2022-11-07] MEDS: MEROPENEM 1 GM in SODIUM CHLORIDE 0.9% IV 100 ML 200 ML IVPB (17:30)
[2022-11-07 17:35] LABS: Procalcitonin 6.5 ng/mL
[2022-11-07] MEDS: VASOPRESSIN INJ 100 UNITS in DEXTROSE 5% 95 ML IV CONT (17:45)
[2022-11-07 18:30] LABS: Reflex Lactic Acid Yes or No Add Lactic
[2022-11-07 18:33] LABS: Creatine Kinase 909 U/L (55-170)
[2022-11-07] MEDS: HYDROCORTISONE SODIUM SUCCINATE 100 MG/2 ML VIAL IV PUSH ×2 (18:59→21:43)
[2022-11-07 20:17] LABS: Lactic Acid 3.4 mmol/L (0.7-2.0)
[2022-11-07 21:54] LABS: Anion Gap 15 mmol/L (8-16); Blood Urea Nitrogen 93 mg/dL (9-20); Calcium 7.3 mg/dL (8.4-10.2); Carbon Dioxide 16 mmol/L (22-30); Chloride 98 mmol/L (98-107); Estimated CRCL calculation 18 ml/min; Estimated Glomerular Filt Rate 15; Glucose 152 mg/dL (65-110); Magnesium 1.8 mg/dL (1.6-2.3); Potassium 4.6 mmol/L (3.4-5.0); Sodium 129 mmol/L (137-145)
[2022-11-08] VITALS (59 sets, daily range): BP systolic 99–120; BP diastolic 58–75; PULSE 75–147; RESP 20–31; TEMP 36.9–38.3; O2SAT 84–99
[2022-11-08] MEDS: ALBUMIN HUMAN 25% 25 GM/100 ML 100 ML IVPB ×4 (00:21→17:22)
[2022-11-08] MEDS: MEROPENEM 1 GM in SODIUM CHLORIDE 0.9% IV 100 ML 200 ML IVPB ×2 (00:26→08:51)
[2022-11-08 05:07] LABS: Basophils Percent Auto 0.3 % (0.2-1.2); Hematocrit 27.5 % (42.0-52.0); Hemoglobin 9.5 g/dL (14.0-18.0); Immature Granulocyte Absolute 0.44 K/mm3 (0.00-0.031); Immature Platelet Fraction Pct 5.3 % (0.9-11.2); Lymphocytes Absolute Auto 0.36 K/mm3 (0.9-3.2); Lymphocytes Percent Auto 3.3 % (18.3-44.2); Mean Corpuscular HGB Conc 34.5 g/dl (32-36); Mean Corpuscular Hemoglobin 30.6 pg (26-34); Mean Corpuscular Volume 88.7 fl (80-100); Mean Platelet Volume 11.9 fl (7.4-10.4); Monocytes Absolute Auto 0.5 K/mm3 (0.1-0.6); Monocytes Percent Auto 4.9 % (2.6-8.5); Neutrophils Absolute Auto 9.6 K/mm3 (1.3-6.7); Neutrophils Percent Auto 87.5 % (45.5-73.1); Platelet Count Result 43 k/mm3 (150-375); Red Cell Distribution Width 14.4 % (11.5-14.5)
[2022-11-08 05:32] LABS: Albumin Level 3.3 g/dL (3.5-5.1); Alkaline Phosphatase 113 U/L (38-126); Anion Gap 18 mmol/L (8-16); Bilirubin,Total 3.5 mg/dL (0.2-1.3); Blood Urea Nitrogen 101 mg/dL (9-20); Calcium 7.5 mg/dL (8.4-10.2); Carbon Dioxide 15 mmol/L (22-30); Chloride 96 mmol/L (98-107); Estimated CRCL calculation 16 ml/min; Estimated Glomerular Filt Rate 13; Glucose 196 mg/dL (65-110); Magnesium 1.8 mg/dL (1.6-2.3); Phosphorus 6.2 mg/dL (2.5-4.5); Potassium 4.7 mmol/L (3.4-5.0); Sodium 129 mmol/L (137-145)
[2022-11-08 05:33] LABS: Anisocytosis 1+ (NORMAL); Platelet Estimate Decreased (Adequate)
[2022-11-08 05:34] LABS: Acanthocytes 3+ (NORMAL); Poikilocytosis 2+ (NORMAL); Schistocytes None Seen (NORMAL)
[2022-11-08 05:37] LABS: Alanine Aminotransferase 1328 U/L (6-50)
[2022-11-08 05:51] LABS: Aspartate Amino Transferase 2794 U/L (17-59)
[2022-11-08] MEDS: HYDROCORTISONE SODIUM SUCCINATE 100 MG/2 ML VIAL IV PUSH ×2 (05:57→15:16)
[2022-11-08 06:28] LABS: Glucose Point of Care 175 mg/dl (65-105)
[2022-11-08 07:39] LABS: Glucose Point of Care 201 mg/dl (65-105)
[2022-11-08] MEDS: PANTOPRAZOLE SODIUM IV 40 MG VIAL IV PUSH (08:55)
[2022-11-08] MEDS: INSULIN ASPART (*BKC) 100 UNITS/ML SUB-Q (08:56)
--- NOTE | 2022-11-08 09:43 | WPDINTPN ---
Progress Note: A&P Assessment and Plan (1) Shock: Code(s): R57.9 - Shock, unspecified Status: Acute Assessment and Plan: Patient has combined septic and cardiogenic shock. He has severe [place] stenosis and cardiomyopathy with EF of 20 25% and now has Gram-positive bacteremia Continue Levophed and vasopressin infusions Continue stress dose hydrocortisone Continue IV albumin Cautious IV fluids (2) Sepsis: Code(s): A41.9 - Sepsis, unspecified organism Status: Acute Assessment and Plan: Procalcitonin 6.5 UA suggestive of UTI 11/07 - 07/19 blood cultures growing Gram-positive cocci. CT chest abdomen pelvis IMPRESSION: 1. Small left pleural effusion with dependent compressive atelectasis in the left lower lobe. 2. Cardiomegaly and small pericardial effusion. 2. Aortic valve calcification which could predispose towards aortic stenosis with potentially secondary 4.4 cm ascending thoracic aortic aneurysm. 4. Nonspecific very small amount of ascites in the abdomen and pelvis and extensive body wall edema which along with the pericardial effusion and small left pericardial effusion could be related to anasarca. Patient had a shingles rash or on his skin she I suspect is the likely source of Gram-positive bacteremia as CT scan does not suggest any significant pneumonia. Patient also appears to have UTI as per UA and urine cultures pending Continue empiric vancomycin and meropenem at this time (3) Altered mental status: Code(s): R41.82 - Altered mental status, unspecified Status: Acute Assessment and Plan: Patient encephalopathic which is likely multifactorial secondary to sepsis shock and, uremia He is alert awake but not oriented He follows commands but is generalized weak Ammonia level is normal TSH is normal ABG showed metabolic acidosis Head CT ?Small old infarct in the right frontal lobe. No acute intracranial process. Patient NPO Will place NG tube for pills (4) Coffee ground emesis: Code(s): K92.0 - Hematemesis Status: Acute Assessment and Plan: Hemoglobin has been stable over last 2 days. No obvious active GI bleed Patient is on Protonix IV q.12 hours GI is following Monitor hemoglobin (5) Acute on chronic renal failure: Code(s): N17.9 - Acute kidney failure, unspecified; N18.9 - Chronic kidney disease, unspecified Status: Acute Assessment and Plan: Check CK level and urine electrolytes CT scan of the abdomen does not show hydronephrosis Likely prerenal which may have progressed to ATN by now IV fluid bolus followed by cautious hydration and vasopressors to maintain mean arterial pressure as patient is overall volume overloaded Creatinine is worsening and urine output is poor I anticipate patient will need hemodialysis in next 24-48 hours. I have discussed case with meat trimmer and considering patient in septic shock, severe aortic stenosis, cardiomyopathy with EF of 20% it would be better for patient to receive CRRT insert of intermittent hemodialysis. I will try to transfer patient to tertiary facility with CRRT capability if bed is above (6) Aortic stenosis: Code(s): I35.0 - Nonrheumatic aortic (valve) stenosis Status: Acute Assessment and Plan: Severe known aortic stenosis Will likely need TAVR eventually if survives improved (7) Coronary artery disease: Code(s): I25.10 - Atherosclerotic heart disease of [place] coronary artery without angina pectoris Status: Acute Assessment and Plan: Antiplatelet therapy is on hold due to GI bleed Beta-shakir and lisinopril hold due to shock Cardiology following (8) Type 2 diabetes mellitus: Code(s): E11.9 - Type 2 diabetes mellitus without complications Status: Acute Assessment and Plan: Sliding scale insulin NPO (9) Heart failure with reduced ejection fraction: Code(s): I50.20 - Unspecified systolic (congestive) heart failure
[2022-11-08] MEDS: SODIUM BICARBONATE 8.4% 150 MEQ in WATER, STERILE FOR INJECTION 950 ML 100 MEQ IV CONT (10:18)
--- NOTE | 2022-11-08 12:00 | PM.PNNEP ---
Progress Note: A&P Assessment and Plan (1) LUDIN (acute kidney injury): Code(s): N17.9 - Acute kidney failure, unspecified Status: Acute Assessment and Plan: presumably due to hypotension/hemodynamic instability coupled with depressed EF and renal hypoperfusion suspect may hae progressed to ATN follow-up on urine studies, CPK, and renal ultrasound continues attempts to optimize hemodynamics remains at high risk for COMMERCIAL GREEN RETROFIT ARCHITECT/dialysis although given his hemodynamic instability and pressor requirements, may need CRRT follow repeat labs and UOP (2) Stage 3b chronic kidney disease: Code(s): N18.32 - Chronic kidney disease, stage 3b Status: Chronic Assessment and Plan: baseline creatinine ~ 1.6 - 1.7mg/dl by report porbably secondary to HTN, DM, vascular disease, and kidney stones follows with Dr. Neymar Neville for CKD management (3) Septic shock: Code(s): A41.9 - Sepsis, unspecified organism; R65.21 - Severe sepsis with septic shock Status: Acute Assessment and Plan: positive blood cultures noted other contributing factors: poor cardiac output/EF severe aortic stenosis CHF on IV antibiotics s/p IVF resuscitation continue vasopressor support (4) Altered mental status: Code(s): R41.82 - Altered mental status, unspecified Status: Acute Assessment and Plan: presumably due to hypotension/shock and renal failure (possible uremia) follow mentation with supportive therapy if worsens, may need intubation follow ABG brain imaging when able (5) Coffee ground emesis: Code(s): K92.0 - Hematemesis Status: Acute Assessment and Plan: GI already following monitor trend of H/H on IV PPI (6) Heart failure with reduced ejection fraction: Code(s): I50.20 - Unspecified systolic (congestive) heart failure Status: Acute Assessment and Plan: as noted by recent Echo complicated by aortic stenosis Cardiology following (7) Elevated liver enzymes: Code(s): R74.8 - Abnormal levels of other serum enzymes Status: Acute Assessment and Plan: elevated AST, ALT, and bilirubin possibly related to hypotension +/- shock liver hepatitis studies pending right upper quadrant ultrasound ordered follow trend of LFTs (8) Type 2 diabetes mellitus: Code(s): E11.9 - Type 2 diabetes mellitus without complications Status: Acute Assessment and Plan: follow accuchecks glycemic control per hospitalists/script developer I suspect the patient will need dialytic intervention in the next 24 - 48 hours given his ongoing decline in renal function with associated metabolic acidosis, possible uremia (BUN > 100), and worsening urine output; however, given his hemodynamic instability in association with depressed EF/cardiomyopathy as well as aortic stenosis, he would probably due better with CRRT rather intermittent HD; I have discussed this with Dr. Mills earlier today and he is initiated efforts to transfer the patient to another hospital where CRRT is available. Will continue to follow. Subjective Date/time seen: 11/08/22 12:00 Interval history: Follow-up for acute kidney injury on chronic kidney disease. His overall condition continues to deteriorate in the last 24 hours; his renal failure continues to worsen with ongoing decline in urine output; he is still requiring 2 pressors to maintain his blood pressure/MAP; positive blood cultures are noted and has been febrile as well. Exam Narrative: General: elderly male in NAD Heart: normal S1 and S2; no rub Lungs: coarse breath sounds at the bases Abdomen: soft, nontender, nondistended, positive bowel sounds Extremities: no cyanosis or clubbing; no edema Skin: warm and dry Objective Data Vital Signs Vital Signs: Vital Signs Temp Pulse Resp BP Pulse Ox O2 Del Method 11/08/22 12:00 98.8 F 76 2
--- NOTE | 2022-11-08 12:00 | P.PNNP_ITS ---
Progress Note: A&P Assessment and Plan (1) LUDIN (acute kidney injury): Code(s): N17.9 - Acute kidney failure, unspecified Status: Acute Assessment and Plan: * presumably due to hypotension/hemodynamic instability coupled with depressed EF and renal hypoperfusion * suspect may hae progressed to ATN * follow-up on urine studies, CPK, and renal ultrasound * continues attempts to optimize hemodynamics * remains at high risk for INFORMATION SECURITY ANALYST/dialysis although given his hemodynamic instability and pressor requirements, may need CRRT * follow repeat labs and UOP (2) Stage 3b chronic kidney disease: Code(s): N18.32 - Chronic kidney disease, stage 3b Status: Chronic Assessment and Plan: * baseline creatinine ~ 1.6 - 1.7mg/dl by report * porbably secondary to HTN, DM, vascular disease, and kidney stones * follows with Dr. Neymar Neville for CKD management (3) Septic shock: Code(s): A41.9 - Sepsis, unspecified organism; R65.21 - Severe sepsis with septic shock Status: Acute Assessment and Plan: * positive blood cultures noted * other contributing factors: * poor cardiac output/EF * severe aortic stenosis * CHF * on IV antibiotics * s/p IVF resuscitation * continue vasopressor support (4) Altered mental status: Code(s): R41.82 - Altered mental status, unspecified Status: Acute Assessment and Plan: * presumably due to hypotension/shock and renal failure (possible uremia) * follow mentation with supportive therapy * if worsens, may need intubation * follow ABG * brain imaging when able (5) Coffee ground emesis: Code(s): K92.0 - Hematemesis Status: Acute Assessment and Plan: * GI already following * monitor trend of H/H * on IV PPI (6) Heart failure with reduced ejection fraction: Code(s): I50.20 - Unspecified systolic (congestive) heart failure Status: Acute Assessment and Plan: * as noted by recent Echo * complicated by aortic stenosis * Cardiology following (7) Elevated liver enzymes: Code(s): R74.8 - Abnormal levels of other serum enzymes Status: Acute Assessment and Plan: * elevated AST, ALT, and bilirubin * possibly related to hypotension +/- shock liver * hepatitis studies pending * right upper quadrant ultrasound ordered * follow trend of LFTs (8) Type 2 diabetes mellitus: Code(s): E11.9 - Type 2 diabetes mellitus without complications Status: Acute Assessment and Plan: * follow accuchecks * glycemic control per hospitalists/tie carrier I suspect the patient will need dialytic intervention in the next 24 - 48 hours given his ongoing decline in renal function with associated metabolic acidosis, possible uremia (BUN > 100), and worsening urine output; however, given his hemodynamic instability in association with depressed EF/cardiomyopathy as well as aortic stenosis, he would probably due better with CRRT rather intermittent HD; I have discussed this with Dr. Mills earlier today and he is initiated efforts to transfer the patient to another hospital where CRRT is available. Will continue to follow. Subjective Date/time seen: 11/08/22 12:00 Interval history: Follow-up for acute kidney injury on chronic kidney disease. His overall condition continues to deteriorate in the last 24 hours; his renal failure continues to worsen with ongoing decline in urine output; he is still requiring 2 pressors to maintain his blood pressure/MAP; positive blood
[2022-11-08 12:34] LABS: Glucose Point of Care 199 mg/dl (65-105)
[2022-11-08] MEDS: LORATADINE 10 MG TABLET PO (12:39)
[2022-11-08] MEDS: FERROUS SULFATE 324 MG TABLET PO ×2 (12:39→17:15)
[2022-11-08] MEDS: FLUTICASONE PROPIONATE 0.05% NA SPR 16 GM BTL (*BKC) 2 SPRAY NASAL (12:40)
--- NOTE | 2022-11-08 13:19 | PM.PNCARD ---
Progress Note: A&P Assessment and Plan (1) Shock: Code(s): R57.9 - Shock, unspecified Status: Acute Assessment and Plan: Patient developed fever of 103? F along with bacteremia Gram-positive cocci x2 and clinical picture consistent with sepsis and septic shock. Continue IV antibiotic, supportive care and pressors. CT chest abdomen pelvis did not reveal obvious source. Possible source from the skin due to recent shingles lesions can not exclude GI as well. Identification of bacteremia pending. Patient appears to be in clinical shock mixed picture Septic and possibly cardiogenic as well. He is not a candidate for antiplatelet or anticoagulant therapy particularly given positive guaiac stool consider GI bleed with slight decline in H&H. (2) Heart failure with reduced ejection fraction: Code(s): I50.20 - Unspecified systolic (congestive) heart failure Status: Acute Assessment and Plan: Very cautious with fluid balance. Continue IV fluid support for now. Patient has worsening LV systolic function severe depression EF 20 25%. Patient will required pressor support given severe hypotension refractory to fluids. Patient remains critically ill with poor prognosis and evidence of mild volume overload although he remains on room air. given his pulmonary renal failure he will require dialysis preferably CVVHD was not available at this institution therefore he will require transfer to an outside hospital who provide higher level of care. - Unable to give diuretic therapy reliably although he continues to receive cautious IV fluids given septic shock in foam renal failure. He is not a candidate for aortic valve replacement at this time which time a clear given his critical illness and evidence of infection. Patient's and son verbalized understanding. All questions answered to their satisfaction. Patient is critically ill with multiorgan system failure unfortunately with poor prognosis. Spent 35 minutes with the patient at bedside including discussion with family, examination, discussions with colleagues, chart review, medical decision-making, and documentation. (3) Acute on chronic renal failure: Code(s): N17.9 - Acute kidney failure, unspecified; N18.9 - Chronic kidney disease, unspecified Status: Acute Assessment and Plan: Worsening despite IV fluids. Multifactorial concern for underlying infection, hypovolemia and hypoperfusion due to poor cardiac output complicated by severe aortic stenosis. (4) Elevated troponin: Code(s): R77.8 - Other specified abnormalities of plasma proteins Status: Acute Assessment and Plan: Multifactorial due to bacteremia, septic shock, fulminant acute renal failure, underlying CAD with severe LV dysfunction in setting of severe aortic stenosis with myocardial ischemia secondary to demand mismatch as opposed to acute plaque rupture and or acute primary infarction. troponin trending up but I do not feel this is consistent with acute coronary syndrome and/or primary myocardial infarction/plaque rupture given severe multiorgan system failure. Limited options. Discussed with family at great length he is not a candidate for invasive angiography even if warranted given severe thrombocytopenia, worsening acute renal failure, altered mental status, critical illness with shocking concern for sepsis. (5) Aortic stenosis: Code(s): I35.0 - Nonrheumatic aortic (valve) stenosis Status: Acute Assessment and Plan: He has severe aortic stenosis with MARCIA <1.0cm2. This no doubt complicates management as he is on vasopressin and norepinephrine due to septic shock. Need to maintain adequate intravascular volume letter overloading and avoid hypotension. Very delicate balance at this time. (6) Bacteremia: Code(s): R78.81 - Bacteremia Status: Acute Assessment and Plan: Gram-positive cocci x2 thus far. Identification
--- NOTE | 2022-11-08 14:04 | PM.IMPN ---
Progress Note: A&P Assessment and Plan (1) Shock: Code(s): R57.9 - Shock, unspecified Status: Acute Assessment and Plan: Patient became hypotensive on 11/07. [place] to be sepsis related with bacteremia. Thrombocytopenia noted which could be related to sepsis possibly. CXR clear. Consider Enterococcus from his recent GI symptoms or skin source from the shingles. BCx could be contaminant as well. UA noted and UCx pending. CT Ch/A/P 11/07 showing small left pleural effusion with atelectasis, small pericardial effusion, CMG, small amount of ascities and anasarca. Also with 4.4cm ascending thoracic aortic aneurysm. Central line placed and started on pressors on 11/07. Follow up on BCx results. Repeat BCx tomorrow. Continue stress dose steroids and albumin Continue pressors and wean as toelrated. (2) Sepsis: Code(s): A41.9 - Sepsis, unspecified organism Status: Acute Assessment and Plan: As above. Sepsis related to bacteremia. (3) Bacteremia: Code(s): R78.81 - Bacteremia Status: Acute Assessment and Plan: BCx (2of2) growing gram positive cocci in clusters. As above (4) Acute on chronic renal failure: Code(s): N17.9 - Acute kidney failure, unspecified; N18.9 - Chronic kidney disease, unspecified Status: Acute Assessment and Plan: Patient was on Lasix on admission. Acute kidney injury could be related to dehydration but also suspect hypoperfusion from the severe aortic stenosis and poor EF brought on by the septic shock. By report, baseline creatinine is 1.6-1.7. Creatinine elevated here at 2.2 and has climbed to 4.4 with BUN 101 today. Improved blood pressure will ensure good renal perfusion. Plan for transfer for CVVHD. (5) Elevated liver enzymes: Code(s): R74.8 - Abnormal levels of other serum enzymes Status: Acute Assessment and Plan: Liver enzymes markedly elevated with AST 2794 and ALT 1328. Total bilirubin is now 3.5. Probably shock liver related to the hypotension. Abdominal ultrasound 11/07 shows the gallbladder not visualized likely due to contraction and obscuring from bowel gas. The liver had normal echogenicity and echotexture. Check hepatitis panel. Continue to monitor closely. (6) Coffee ground emesis: Code(s): K92.0 - Hematemesis Status: Acute Assessment and Plan: Patient noted to have coffee-ground emesis. Stools guaiac positive. GI is on consult but given the patient's current condition, endoscopy is on hold. Continue Protonix IV. (7) Altered mental status: Code(s): R41.82 - Altered mental status, unspecified Status: Acute Assessment and Plan: Patient is more awake but still confused. This is not his normal baseline. 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 Sepsis causing altered mental status. Treatment as above. (8) Heart failure with reduced ejection fraction: Code(s): I50.20 - Unspecified systolic (congestive) heart failure Status: Acute Assessment and Plan: Patient appears to be euvolemic. Urine sodium is less than 5 but this could be related to the severe aortic stenosis and poor renal perfusion. Will need dialysis to control fluid status probably. (9) Hyponatremia: Code(s): E87.1 - Hypo-osmolality and hyponatremia Status: Acute Assessment and Plan: He looks dehydrated from vomiting and diarrhea the last several days. He has been taking a diuretic at home as well. Urine sodium <5. Urine urea 973. TSH normal. Sodium better. Continue to monitor sodium closely. (10) Viral gastroenteritis: Code(s): A08.4 - Viral intestinal infection, unspecified Status: Acute Assessment and Plan: Patient has had nausea, vomiting, and diarrhea for the last several days though this is improving. Presumably he is getting over a viral gastroenteritis. GI following. Continue
[2022-11-08 16:23] LABS: Glucose Point of Care 200 mg/dl (65-105)
--- NOTE | 2022-11-08 19:41 | PM.TDS ---
Transfer Discharge Sum: Prov Provider Date of admission: 11/06/22 11:30 Primary care physician: Morris Rowland, Admitting clinician: Miles Leong MD Consults: 11/05/22 Consult to Physician Routine Comment: Consulting Provider: Miles Olivares call center recruiter/MD group to consult: [facility] cardiology Reason for consultation: elevated troponin Has provider been notified: Yes 11/06/22 Consult to Physician Routine Comment: Called office and notified them of consult Consulting Provider: Nelson Royal call center recruiter/MD group to consult: Reason for consultation: GI bleed Has provider been notified: Yes 11/07/22 Wound/ET Consult Routine Reason for Consult:: dried toe eschar 11/07/22 13:30 Consult to Physician Routine Comment: Spoke with and notified him of consult Consulting Provider: Jose Saha call center recruiter/MD group to consult: Nephrology Reason for consultation: LUDIN/CKD Has provider been notified: Yes DS: Admitting Diagnosis Discharge Date 11/08/22 Admitting Diagnosis LUDIN DS: Discharge Diagnosis Discharge Diagnosis (1) Shock: Code(s): R57.9 - Shock, unspecified Status: Acute (2) Sepsis: Code(s): A41.9 - Sepsis, unspecified organism Status: Acute (3) Bacteremia: Code(s): R78.81 - Bacteremia Status: Acute (4) Acute on chronic renal failure: Code(s): N17.9 - Acute kidney failure, unspecified; N18.9 - Chronic kidney disease, unspecified Status: Acute (5) Elevated liver enzymes: Code(s): R74.8 - Abnormal levels of other serum enzymes Status: Acute (6) Coffee ground emesis: Code(s): K92.0 - Hematemesis Status: Acute (7) Altered mental status: Code(s): R41.82 - Altered mental status, unspecified Status: Acute (8) Heart failure with reduced ejection fraction: Code(s): I50.20 - Unspecified systolic (congestive) heart failure Status: Acute (9) Hyponatremia: Code(s): E87.1 - Hypo-osmolality and hyponatremia Status: Acute (10) Viral gastroenteritis: Code(s): A08.4 - Viral intestinal infection, unspecified Status: Acute (11) Elevated troponin: Code(s): R77.8 - Other specified abnormalities of plasma proteins Status: Acute (12) Type 2 diabetes mellitus: Code(s): E11.9 - Type 2 diabetes mellitus without complications Status: Acute (13) Coronary artery disease: Code(s): I25.10 - Atherosclerotic heart disease of [place] coronary artery without angina pectoris Status: Acute (14) Aortic stenosis: Code(s): I35.0 - Nonrheumatic aortic (valve) stenosis Status: Acute (15) Dehydration: Code(s): E86.0 - Dehydration Status: Acute (16) Shingles: Code(s): B02.9 - Zoster without complications Status: Acute Transfer Discharge Sum: Med Medications Active and Home Medications: Home Medications Lactobacillus acidoph-L.bulgaricus 1 million cell chewable tablet 1 tablet PO DAILY 11/05/22 [History Confirmed 11/05/22] acetaminophen 500 mg tablet 500 mg PO BID PRN Headache 11/05/22 [History Confirmed 11/05/22] aspirin 81 mg tablet,delayed release 81 mg PO DAILY 11/05/22 [History Confirmed 11/05/22] atorvastatin 40 mg tablet 40 mg PO DAILY 11/05/22 [History Confirmed 11/05/22] carvedilol 12.5 mg tablet 12.5 mg PO BID 11/05/22 [History Confirmed 11/06/22] cetirizine 10 mg tablet 10 mg PO DAILY 11/05/22 [History Confirmed 11/05/22] cholecalciferol (vitamin D3) 50 mcg (2,000 unit) capsule (Vitamin D3) 50 mcg PO DAILY 11/05/22 [History Confirmed 11/05/22] famotidine 20 mg tablet 20 mg PO DAILY 11/05/22 [History Confirmed 11/05/22] ferrous sulfate 325 mg (65 mg iron) tablet 325 mg PO BID 11/05/22 [History Confirmed 11/05/22] fluticasone propionate 50 mcg/actuation nasal spray,suspension 2 spray intranasal DAILY 11/05/22 [History Confirmed 11/05/22] furosemide 20 mg tablet 20 mg PO DAILY
[2022-11-08 19:43] LABS: Hepatitis B Surface Antigen Negative (Negative)
[2022-11-08 19:51] LABS: HAV RESULT Negative (Negative); Hepatitis B Core IgM Result Negative (Negative)
[2022-11-08 19:59] LABS: Hepatitis C Virus Antibody Negative (Negative)
[2022-11-09 20:14] LABS: Osmolality, Urine 557 mOsm/kg (50-1200)
== END 2022-11-08 19:35 | disposition short-term general hospital (02) | DRG 871 ==
LOC: ANHIMU 11-07 07:44 → ANHICU 11-08 09:01 → ANHIMU 11-09 15:14
PROVIDERS: Internal Medicine; Internal Medicine Cardiovascular Disease; Physician Assistant; Student in an Organized Health Care Education/Training Program; Admitting Provider Chiropractor; PCP Internal Medicine; Visit Provider Internal Medicine
DX: A41.01 Sepsis due to Methicillin susceptible Staphylococcus aureus (principal); R57.0 Cardiogenic shock; R65.21 Severe sepsis with septic shock; N17.9 Acute kidney failure, unspecified; E87.1 Hypo-osmolality and hyponatremia; I50.22 Chronic systolic (congestive) heart failure; I13.0 Hypertensive heart and chronic kidney disease with heart failure and stage 1 through stage 4 chronic kidney disease, or unspecified chronic kidney disease; K92.0 Hematemesis; I24.8 Other forms of acute ischemic heart disease; E86.0 Dehydration; I95.9 Hypotension, unspecified; D69.6 Thrombocytopenia, unspecified; I35.0 Nonrheumatic aortic (valve) stenosis; I27.20 Pulmonary hypertension, unspecified; I25.5 Ischemic cardiomyopathy; I25.10 Atherosclerotic heart disease of native coronary artery without angina pectoris; A08.4 Viral intestinal infection, unspecified; B02.9 Zoster without complications; N18.32 Chronic kidney disease, stage 3b; E11.22 Type 2 diabetes mellitus with diabetic chronic kidney disease; E78.5 Hyperlipidemia, unspecified; K21.9 Gastro-esophageal reflux disease without esophagitis; R74.8 Abnormal levels of other serum enzymes; I25.2 Old myocardial infarction; Z87.11 Personal history of peptic ulcer disease; Z87.442 Personal history of urinary calculi; Z95.5 Presence of coronary angioplasty implant and graft; Z79.02 Long term (current) use of antithrombotics/antiplatelets
CPT/HCPCS: 36415; 36600; 70450; 71045; 71250; 73120; 73600; 74176; 76700; 80048; 80053; 80074; 80202; 81001; 82140; 82271; 82274; 82550; 82570; 82607; 82746; 82805; 82948; 83036; 83605; 83735; 83930; 83935; 83986; 84100; 84145; 84300; 84443; 84484; 84540; 85014; 85018; 85025; 85027; 85055; 86140; 87040; 87086; 87147; 87181; 87186; 93005; 93306; 96361; 96374; A9270; C1751; C9113; G0378; G0379; J0131; J1720; J1815; J2185; J3370; J7030; P9047